=== PATIENT | male | born 1995 | race Caucasian/White ===

== ENCOUNTER 2019-08-13 16:58 | Emergency (ER) | payer OTHER, SELFPAY ==
[2019-08-13 17:17] VITALS: BP 142/91; PULSE 80; RESP 20; O2SAT 99
--- NOTE | 2019-08-13 17:21 | DI.RAD.S_ITS ---
PROCEDURE: XR TOE LT MIN 2V INDICATIONS: swollen/purple TECHNIQUE: 3 views of the left toe(s) acquired. COMPARISON: None. FINDINGS: Bones: No fractures or dislocations. No suspicious bony lesions. Soft tissues: No suspicious soft tissue densities. Mild swelling of the lateral foot. IMPRESSION: Intact left foot. Displaced fifth digit fractures not identified although there is mild swelling over the foot laterally. Dictated by: Charlette Min M.D. on 08/13/2019 at 18:12 Approved by: Charlette Min M.D. on 08/13/2019 at 18:13
[2019-08-13 19:37] VITALS: PULSE 83; O2SAT 97
--- NOTE | 2019-08-13 20:43 | ED_ITS ---
HPI - Extremity Injury (Lower) <PERFECTO Henning - Last Filed: 08/13/19 20:50> General Chief Complaint: Extremity Injury, Lower Stated Complaint: thinks Fx pinky toe left foot Time Seen by Provider: 08/13/19 18:34 Source: patient Mode of arrival: Ambulatory Limitations: no limitations History of Present Illness HPI Narrative: The patient is a 24-year-old male nonsmoker who presents with his for chief complaint of a stubbed pinky toe on his left side. Earlier today. He has taken Motrin. He has not taken any Tylenol rest ice compression elevation. The patient denies any previous injuries to the foot. He states that his pain is isolated to the toe only. He states he has bruising. Related Data Allergies Allergy/AdvReac Type Severity Reaction Status Date / Time No Known Drug Allergies Allergy Verified 08/13/19 17:21 Review of Systems <YANETH Henning - Last Filed: 08/13/19 20:50> Review of Systems Narrative: GENERAL: Denies chills, fatigue, malaise, fever, sweats. HEENT: Denies sinus pain, ear pain, sore throat, difficulty swallowing, dizziness. RESPIRATORY: Denies dyspnea, cough, wheezing, hemoptysis, sputum. CARDIOVASCULAR: Denies chest pain, palpitations, orthopnea, edema, GASTROINTESTINAL: Denies nausea, vomiting, abdominal pain, diarrhea, constipation, melena. : Denies dysuria, frequency, incontinence, hematuria, urinary retention. MUSCULOSKELETAL: See HPI SKIN: See HPI NEUROLOGIC: Denies weakness, headache, numbness, change in speech, confusion, seizures, incoordination. PSYCHIATRIC: No concerning psychosocial issues. 12 point review of systems is negative except for those stated above Patient History <PERFECTO Henning - Last Filed: 08/13/19 20:50> Social History Smoking Status: Never smoker alcohol intake frequency: holidays/special occasions only Substance Use Type: does not use Exam <PERFECTO Henning - Last Filed: 08/13/19 20:50> Narrative Exam Narrative: GENERAL: This is a well-nourished, well-developed patient, in no acute distress HEAD: Atraumatic. Normocephalic. No temporal or scalp tenderness. EYES: Pupils equal round and reactive. Extraocular motions intact. No scleral icterus. No injection or drainage. ENT: Nose without bleeding, purulent drainage or septal hematoma. Throat without erythema, tonsillar hypertrophy or exudate. Uvula midline. Airway patent. NECK: Trachea midline. No JVD or lymphadenopathy. Supple, nontender, no meningeal signs. CARDIOVASCULAR: Regular rate and rhythm RESPIRATORY: No cough. No increased respiratory effort. No accessory muscle use. EXTREMITIES: Pain to palpation left 5th toe. Ecchymosis noted over left 5th toe. Capillary refill less than 2 seconds. Positive pedal pulses left foot. Able to flex and extend 5th toe. Skin is intact with no abrasions or lacerations noted NEURO: AOx3. SKIN: See extremity exam Initial Vital Signs Initial Vital Signs: Vital Signs Pulse Rate 80 08/13/19 17:17 Respiratory Rate 20 08/13/19 17:17 Blood Pressure 142/91 H 08/13/19 17:17 Pulse Oximetry 99 08/13/19 17:17 <DO Joshua Simons Last Filed: 08/13/19 22:41> Initial Vital Signs Initial Vital Signs: Vital Signs Pulse Rate 80 08/13/19 17:17 Respiratory Rate 20 08/13/19 17:17 Blood Pressure 142/91 H 08/13/19 17:17 Pulse Oximetry 99 08/13/19 17:17 Course <PERFECTO Henning - Last Filed: 08/13/19 20:50> Orders Ordered: ED Orders 08/13/19 17:21 XR toe LT min 2V Stat Vital Signs Vital signs: Vital Signs - 8 hr 08/13/19 17:17 08/13/19 19:37 Pulse Rate 80 83 Respiratory Rate 20 Blood Pressure 142/91 H Pulse Oximetry 99 97 <DO Joshua Simons Last Filed: 08/13/19 22:41> Orders Ordered: ED Orders 08/13/19 17:21 XR toe LT min 2V Stat Vital Signs Vital signs: Vital Signs - 8 hr 08/13/19 17:17 08/13/19 19:37 Pulse Rate 80 83 Respiratory Rate 20 Blood Pressure 142/91 H Pulse Oximetry 99 97 MDM - Extremity Injury (Lower) <PERFECTO Henning - Last Filed: 08/13/19 20:50> Imaging Data Toe x-ray: Radiologist's impression: [address] [address] XRay Report Signed Patient: Colin AriasMR#: [id number] : 1995Acct:[id number] Age/Sex: 24 / MDate of Service: 08/13/19 Loc: ED Accession Number: [id number] Procedure: XR toe LT min 2V Ordering Provider: Yue Ruby D.O. PROCEDURE: XR TOE LT MIN 2V INDICATIONS: swollen/purple TECHNIQUE: 3 views of the left toe(s) acquired. COMPARISON: None. FINDINGS: Bones: No fractures or dislocations. No suspicious bony lesions. Soft tissues: No suspicious soft tissue densities. Mild swelling of the lateral foot. IMPRESSION: Intact left foot. Displaced fifth digit fractures not identified although there is mild swelling over the foot laterally. Dictated by: Charlette Min M.D. on 08/13/2019 at 18:12 Approved by: Charlette Min M.D. on 08/13/2019 at 18:13 [facility] Narrative Medical decision making narrative: The patient is a 24-year-old male who presents for chief complaint of . I think I broke my toe his x-ray shows no acute fracture. He declined a ju-tape. Encouraged rest ice compression elevation as well as [id number] pain medications as needed and able. The patient denies any pain other than his 5th toe on his left foot. He is neurovascularly intact throughout stay in the emergency department. Patient states understanding of return precautions as well as follow-up care and has no questions or concerns upon discharge. Discharge Plan Departure Patient Disposition: Home Clinical Impression: Contusion of toe Qualifiers: Encounter type: initial encounter Toe: lesser toe Damage to nail status: without damage Laterality: left Qualified Code(s): S90.122A - Contusion of left lesser toe(s) without damage to nail, initial encounter Discharge Date/Time: 08/13/19 19:38 Instructions: DI for Contusion, How To Perform RICE (Rest, Ice, Compress, Elevate), DI for Toe Sprain Activity Restrictions/Additional Instructions: As I discussed, your x-ray shows no acute fracture. This does not rule out a soft tissue injury such as a ligament or tendon injury. It is important that you follow up with primary care provider, especially if worsening or no improvement. There can be fractures that did not show up on initial x-ray. Please use rest ice compression elevation As discussed, please follow up with primary care provider. Referrals: [facility] [Provider Group] Stand Alone Forms: Work Release Note <Young Beasley, DO - Last Filed: 08/13/19 22:41> Sign Out Provider Sign Out Attestation: Dr Beasley Co-Sign Statement: I was available for consultation during this patient's emergency department visit. This chart is signed by myself for administrative purposes only. I did not have direct contact with this patient during this visit. They were seen independently by the APC.
== END 2019-08-13 19:38 | disposition home or self-care (01) ==
PROVIDERS: Emergency Provider Nurse Practitioner Family
DX: S90.122A Contusion of left lesser toe(s) without damage to nail, initial encounter (principal)
CPT/HCPCS: 73660; 99282; 99283

== ENCOUNTER 2021-05-08 19:55 | Emergency (ER) | payer OTHER, SELFPAY ==
[2021-05-08 19:59] VITALS: BP 139/96; PULSE 105; RESP 18; TEMP 36.7; O2SAT 97; BMI 25.7
--- NOTE | 2021-05-08 20:04 | DI.RAD.S_ITS ---
PROCEDURE: XR CHEST 2V INDICATIONS: cough, SOB TECHNIQUE: 2 views of the chest were acquired. COMPARISON: None. FINDINGS: Surgical changes and devices: None. Lungs and pleura: Lungs are clear. No pleural effusions or pneumothorax. Mediastinum: Mediastinal contours are normal. Heart size is normal. Bones and chest wall: No suspicious bony abnormalities. Soft tissues appear unremarkable. IMPRESSION: No acute cardiopulmonary abnormality. Dictated by: Ernesto Perez M.D. on 05/08/2021 at 20:30 Approved by: Ernesto Perez M.D. on 05/08/2021 at 20:31
[2021-05-08 20:28] LABS: COVID19 -Nasal RAPID Negative (Negative)
--- NOTE | 2021-05-08 21:50 | ED_ITS ---
HPI - SOB/Dyspnea General Chief Complaint: Shortness of Breath/Dyspnea Stated Complaint: WANTS TEST FOR COVID COUGH WHEEZING SOB Time Seen by Provider: 05/08/21 20:01 Source: patient Mode of arrival: Ambulatory History of Present Illness HPI Narrative: 26-year-old male nonsmoker with noncontributory medical history has had some upper respiratory symptoms including runny nose, sneezing and cough and was sent for COVID test by his workplace. He denies any exposure to persons known with COVID. He has had no fever. He denies any sore throat or loss of smell. He has had no GI symptoms such as nausea, vomiting or diarrhea. Related Data Allergies Allergy/AdvReac Type Severity Reaction Status Date / Time No Known Drug Allergies Allergy Verified 05/08/21 20:04 Review of Systems Review of Systems Narrative: GENERAL: See HPI. HEENT: D see HPI RESPIRATORY: See HPI CARDIOVASCULAR: Denies chest pain, palpitations, orthopnea, edema, GASTROINTESTINAL: Denies nausea, vomiting, abdominal pain, diarrhea, constipation, melena. : Denies dysuria, frequency, incontinence, hematuria, urinary retention. MUSCULOSKELETAL: denies weakness, joint pain, or bony pain SKIN: Denies rash, skin lesions, or other NEUROLOGIC: Denies weakness, headache, numbness, change in speech, confusion, seizures, incoordination. PSYCHIATRIC: No concerning psychosocial issues. 12 point review of systems is negative except for those stated above Patient History Social History Smoking Status: Never smoker Smoking Status: Never smoker alcohol intake frequency: holidays/special occasions only Substance Use Type: does not use Exam Narrative Exam Narrative: GENERAL: [26] year old patient appears stated age. Well- developed patient, in mild distress. HEAD: Atraumatic. Normocephalic. EYES: Pupils equal round and reactive. Extraocular motions intact. No scleral icterus. No injection or drainage. ENT: Nose without bleeding, purulent drainage. Throat without erythema, tonsil lar hypertrophy or exudate. Airway patent. NECK: Trachea midline. Non tender CARDIOVASCULAR: Regular rate and rhythm without murmurs, gallops, or rubs. RESPIRATORY: Clear to auscultation. Breath sounds equal bilaterally. No wheezes, rales, or rhonchi. GASTROINTESTINAL: Abdomen soft, non-tender, nondistended. EXTREMITIES: No edema or joint tenderness. BACK: Nontender without deformity or crepitance. No flank tenderness. NEURO: AOx3. SKIN: No rash or erythema of visible areas Initial Vital Signs Initial Vital Signs: Vital Signs Temperature 98.1 F 05/08/21 19:59 Pulse Rate 105 H 05/08/21 19:59 Respiratory Rate 18 05/08/21 19:59 Blood Pressure 139/96 H 05/08/21 19:59 Pulse Oximetry 97 05/08/21 19:59 Course Orders Ordered: Discontinued Medications Albuterol (Albuterol Hfa Mdi 60 Puff/8 Gm Inhaler) 2 puff INH NOW ONE Stop: 05/08/21 22:16 Last Admin: 05/08/21 22:20 Dose: 2 puff Documented by: ELOISA Vital Signs Vital signs: Vital Signs - 8 hr 05/08/21 22:20 05/08/21 22:33 Pulse Rate 74 79 Respiratory Rate 15 16 Blood Pressure 137/89 Pulse Oximetry 97 100 MDM - SOB/Dyspnea Lab Data Labs: Lab Results 05/08/21 Range/Units 20:05 SARS-CoV-2 (PCR) Negative (Negative) Discharge Plan Departure Patient Disposition: Home Clinical Impression: Upper respiratory virus Instructions: DI for Viral Upper Respiratory Infection -- Adult Activity Restrictions/Additional Instructions: *You have been diagnosed with [viral upper respiratory infection. COVID was negative] *What to do: *Please continue to take your regular medications as directed. [ ] New medication prescriptions sent to your pharmacy: [ ] [ ] New medication written as a paper prescription [x ] No new medications given *Please follow up with your primary care provider in 2-3 days, call for an appointment. Let them know you were seen in the Emergency Department and that we ask that you be seen in follow up. We will electronically transmit a record of today's note if your PCP is in our system *If you do not have a primary care provider please contact the [facility] Resource line at [phone]. They will ask some questions about your medical history and help get you set up with a doctor in the community. *Return to Emergency Department if you should have any new, worsening or concerning symptoms, such as [fever greater than 101 F, shaking chills, worsening pain, persistent vomiting or other bothersome symptoms]
[2021-05-08 22:20] VITALS: PULSE 74; RESP 15; O2SAT 97
[2021-05-08] MEDS: ALBUTEROL HFA MDI 60 PUFF/8 GM INHALER INH (22:20)
[2021-05-08 22:33] VITALS: BP 137/89; PULSE 79; RESP 16; O2SAT 100
== END 2021-05-08 22:35 | disposition home or self-care (01) ==
PROVIDERS: Emergency Provider Emergency Medicine
DX: J06.9 Acute upper respiratory infection, unspecified (principal); Z20.822 Contact with and (suspected) exposure to COVID-19
CPT/HCPCS: 71046; 87635; 99283; C9803; A9270